=== PATIENT | female | born 1965 | race Caucasian/White ===

== ENCOUNTER 2018-07-06 10:54 | Day surgery (SDC) | payer OTHER ==
[2018-07-06] MEDS ORDERED: LR 1,000 ML IV ONE (11:30)
[2018-07-06] MEDS ORDERED: ceFAZolin 2 GM/DEXTROSE 100 ML IV ONE (12:11)
[2018-07-06] MEDS ORDERED: MIDAZOLAM 2 MG/2 ML VIAL IVP ONE (12:22)
--- NOTE | 2018-07-06 12:23 | PDANEPAE ---
ANE Past Medical History - Cardiovascular History Hx Hypertension: No Hx Arrhythmias: No Hx Chest Pain: No Hx Coronary Artery / Peripheral Vascular Disease: No Hx CHF / Valvular Disease: No Hx Palpitations: No - Pulmonary History Hx COPD: No Hx Asthma/Reactive Airway Disease: No Hx Recent Upper Respiratory Infection: No Hx Oxygen in Use at Home: No Hx Sleep Apnea: No Sleep Apnea Screening Result - Last Documented: Negative - Neurologic History Hx Cerebrovascular Accident: No Hx Seizures: No Hx Dementia: No - Endocrine History Hx Diabetes: No Obesity: no - Renal History Hx Renal Disorders: No - Liver History Hx Hepatic Disorders: No - Neurological & Psychiatric Hx Hx Neurological and Psychiatric Disorders: Yes Neurological / Psychiatric History Comment: ANXIETY & DEPRESSION - Cancer History Hx Cancer: No - Congenital Disorder History Hx Congenital Disorders: No - GI History GERD: no Hx Gastrointestinal Disorders: No - Other Health History Other Health History: NEG - Chronic Pain History Chronic Pain: Yes (L FOOT) - Surgical History Prior Surgeries: L FOOT SURGERY. CARPAL TUNNEL FRAN. MENISCUS L KNEE X2 ANE Review of Systems Review of Systems: - Exercise capacity METS (RN): 4 METS ANE Patient History - Allergies Allergies/Adverse Reactions: No Known Allergies Allergy (Unverified 06/13/18 15:41) - Home Medications Home medications: home medication list seen and reviewed Home Medications: Abilify 06/13/18 [Last Taken 07/06/18] Alprazolam 06/13/18 [Last Taken 07/05/18] Lamotrigine 06/13/18 [Last Taken 07/06/18] Multivitamin 06/13/18 [Last Taken 07/06/18] Sertraline HCl 06/13/18 [Last Taken 07/06/18] Wellbutrin 100mg (*) 06/13/18 [Last Taken 07/06/18] - NPO status NPO Status: no food or drink >8 hours NPO Since - Liquids (Date): 07/06/18 NPO Since - Liquids (Time): 06:30 NPO Since - Solids (Date): 07/05/18 NPO Since - Solids (Time): 20:00 - Anes Hx Anes Hx: no prior problems - Smoking Hx Smoking Status: Never smoked ANE Labs/Vital Signs - Vital Signs Blood Pressure: 119/73 Heart Rate: 74 Respiratory Rate: 18 O2 Sat (%): 98 Height: 170.18 cm Weight: 49.895 kg ANE Physical Exam - Airway Neck exam: FROM Mallampati Score: Class 1 Mouth exam: normal dental/mouth exam - Pulmonary Pulmonary: no respiratory distress, no rales or rhonchi, clear to auscultation - Cardiovascular Cardiovascular: regular rate and rhythym, no murmur, rub, or gallop - ASA Status ASA Status: II ANE Anesthesia Plan Anesthesia Plan: MAC
[2018-07-06] MEDS ORDERED: LIDOCAINE 2% 100 MG/5 ML SYR ONE (12:27)
[2018-07-06] MEDS ORDERED: ROPIVACAINE HCL 150 MG/30 ML INJ ONE (12:27)
[2018-07-06] MEDS ORDERED: BUPIVACAINE 0.5% 30 ML SDV ONE (12:27)
[2018-07-06] MEDS ORDERED: BACITRACIN 50,000 UNITS/10 ML SYR IRR ONE (12:27)
--- NOTE | 2018-07-06 12:36 | PDHPUP ---
History & Physical Update H&P update statement: This history and physical update is based on an assessment of the patient which was completed after admission or registration (within 24 hours), but prior to the surgery/procedure. H&P update: H&P reviewed & patient examined (no changes in health), no change in patient's condition since H&P completed
[2018-07-06] MEDS ORDERED: fentaNYL 100 MCG/2 ML INJ ONE (12:37)
[2018-07-06] MEDS ORDERED: DEXAMETHASONE 4 MG/ML VIAL ONE ×2 (12:37)
[2018-07-06] MEDS ORDERED: PROPOFOL/EMULSION 500 MG/50 ML BOTTLE IV ONE (12:37)
[2018-07-06] MEDS ORDERED: LIDOCAINE 1% 5 ML SDV ONE (12:44)
[2018-07-06] MEDS ORDERED: fentaNYL 100 MCG/2 ML INJ IVP PRN (14:08)
[2018-07-06] MEDS ORDERED: LR 500 ML IV PRN (14:08)
[2018-07-06] MEDS ORDERED: PROMETHAZINE HCL 25 MG/ML INJ IVP PRN (14:08)
[2018-07-06] MEDS ORDERED: HYDROCODONE/APAP 5/325 TAB PO PRN (14:08)
[2018-07-06] MEDS ORDERED: ONDANSETRON 4 MG/2 ML VIAL IVP PRN (14:08)
[2018-07-06] MEDS ORDERED: NALOXONE HCL 0.4 MG/ML INJ IVP PRN (14:08)
[2018-07-06] MEDS ORDERED: ACETAMINOPHEN 500 MG TAB PO PRN (14:08)
--- NOTE | 2018-07-06 14:51 | POSTANESTH ---
Post Anesthetic Evaluation Cardiovascular Status: Normal, Stable, Similar to Pre-Op Cond Respiratory Status: Normal, Stable, Similar to Pre-op Cond. Level of Consciousness/Mental Status: Can Participate in Eval, Mildly Sleepy, Arousable Pain Control: Adequate, Prn Tx Ordered Nausea/Vomiting Control: Adequate, Prn Tx Ordered Complications Possibly Related to Anesthesia: None Noted
--- NOTE | 2018-07-06 14:56 | POSTOPPROG ---
Post Op Note Date of Operation: 07/06/18 Surgeon: Stacey Dia [employer] Director: Shireen Dia Pre-op Diagnosis: hallux rigidus with valgus, non union first MTPJ, left foot Post-op Diagnosis: same Indication: pain, deformity Procedure: arthrodesis first MTPJ with graft &plate fixation left foot, removal screw Findings: partial union first MTPJ Inf/Abcess present in the surg proc area at time of surgery?: No EBL: Minimal (Plate and screw fixation) Complications: none
[2018-07-06] MEDS ORDERED: HYDROCODONE/APAP 5/325 TAB ONE (16:20)
[2018-07-06 16:52] VITALS: BP 110/64
--- NOTE | 2018-07-06 18:16 | GOP ---
[f rep st] OPERATIVE REPORT DATE OF OPERATION: 07/06/2018 SURGEON: Stacey Dia DPM [employer] COUNSELOR: Shireen Dia DPM. ANESTHESIA: IV sedation with local, light general. ANESTHESIOLOGIST: Alon Davies MD. 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 PROCEDURE PERFORMED: Removal of retained internal hardware, a single screw, and revisional arthrodesis of the 1st metatarsophalangeal joint with use of Shell graft and plate and screws for fixation 1st metatarsophalangeal joint, left foot. FINDINGS: DESCRIPTION OF PROCEDURE: Patient presented to the hospital approximately an hour and a half prior to foot surgery after having been n.p.o. past midnight. Patient's preoperative history and physical and all prior studies were reviewed and there were no contraindications to the proposed procedure. The patient was given Ancef 2 g IV one half hour prior to foot surgery. Patient was taken to the OR room and placed on the OR table in a supine position where the appropriate anesthetic agents were administered. This was supplemented with a local block to the left foot utilizing a total of 10 cc of 0.5% Naropin with 10 cc of 1% lidocaine plain. Anesthetic block was given to the posterior tibial nerve as it courses through the tarsal tunnel and in a Loera block fashion to the base of the 1st metatarsal, left foot. The left foot was then prepped and draped in usual aseptic fashion and covered with a sterile stockinette. A sterile pneumatic ankle tourniquet was applied and padded well underneath Webril. Utilizing elevation overlying Esmarch bandage, the left foot was exsanguinated and the tourniquet was inflated to a pressure of 220 mmHg. The foot was then lowered to the orthopedic table. Attention was then directed to the dorsomedial aspect of 1st metatarsophalangeal joint where an approximate 6 cm linear longitudinal incision was made in the same plane as the previous surgical incision from prior surgery. The incision was deepened through the subcutaneous tissues to the level of the capsular and periosteal tissues taking care to preserve the neurovascular structures. Any bleeders were clamped and cauterized as needed. There was significant scarring to the subcutaneous tissues and adhesions. The capsule and periosteal tissues were freed from the dorsal and medial aspects of the 1st metatarsal head and distal shaft, and also off the dorsal and medial aspects of the base of the proximal phalanx and proximal shaft region. The screw head was identified to the medial base of the proximal phalanx and removed without complications. The screw was consistent with a Marcia 2.7 mm screw. First metatarsophalangeal joint was inspected and utilizing a [employer] elevator, there was partial bone bridging to the fusion site involving the dorsal and central aspect of the fusion site and slight bridging laterally. There was some internal gapping. The fusion site was opened utilizing osteotome and mallets. The 1st metatarsal head was then exposed in the base of the proximal phalanx where there was sclerosis. The guidewire for the reamer provided via the Arthrex system was then placed through the central aspect of the head of the 1st metatarsal into the shaft region. An 18 mm reamer was placed over the guidewire and the sclerotic bone was removed to the level of healthy subchondral bone. The guidewire was removed and any remaining hypertrophic bone to the rim of the 1st metatarsal was resected with a rongeur. Attention was then directed to the base of the proximal phalanx of the hallux where a guidewire was placed through the central aspect of the base of the proximal phalanx, again to serve as an axis guide. Placement of the pin was checked with the C-arm. Utilizing the reamer from the Arthrex system, the sclerotic bone to the base of the proximal phalanx was resected to healthy subchondral bone. The surgical site was copiously irrigated with sterile saline bacitracin solution. The fusion site was then prepared on both sides by fenestrating the bone with a drill bed, an awl, and an osteotome and mallet. Shell bone graft was then placed on the head of the 1st metatarsal. The proximal phalanx was then held flush against the 1st metatarsal head in a rectus position. A standard MTP locking plate was placed on the fusion site and had the ideal fit. The guidewire for the headless 3.5 Arthrex screw was then placed in a distal medial to proximal lateral direction crossing the fusion site in the similar region as the previous screw removed. A 26 mm headless Arthrex screw was then placed over the guidewire crossing the fusion site. The fusion site was then checked with a C-arm and noted to be in optimal alignment and flush. The plate was placed on the fusion site with olive pins and first, the 2 distal locking screws were placed to the distal arms of the plate, both 3.0 screws measuring 12 mm in length. The olive pins to the plates were removed and a 3.0 nonlocking screw was placed to the compression hole, which measured 18 mm in length. The remaining holes were drilled for the locking screws. The most proximal locking screw measured 16 mm in length, followed by the screw coursing through the distal aspect head of the 1st metatarsal, which measured 18 mm in length. Another nonlocking screw was placed just distal to the fusion site, which measured 16 mm in length. The surgical site was copiously irrigated with a sterile saline bacitracin solution. The fusion site was checked with the C-arm in all planes and had optimal alignment with adequate fixation. The capsular tissues were reapproximated with 2-0 Vicryl. The tourniquet was released. There was immediate capillary refill to all digits and hemostasis. Subcutaneous tissues reapproximated with 4-0 Monocryl. The skin was reapproximated with 4-0 Prolene. A mildly compressive dry sterile gauze dressing was applied utilizing Xeroform, 4 x 4 gauze, Mayi, Kerlix, and Srinath wrap. Patient tolerated the procedure and anesthesia well, transferred to the recovery room with vital signs stable and vascular status intact to left lower extremity. In the recovery room, patient received postoperative oral and written home care instructions. She is instructed to wear the cast boot at all times when ambulating. Is to off weight bear the forefoot, but can bear some weight on the heel for balance. She is to utilize crutches or a Roll-A-Bout for ambulation assist. She was dispensed a Cryo/Cuff and instructed on its usage. The patient was given prescriptions for OxyContin and Percocet to take postoperatively as prescribed and warned about its interactions with some of her current medications. The procedure went well without complications. Postoperative radiographs were ordered. The patient is scheduled for her first postoperative visit in 2 days, but is to call the office earlier if any questions or problems should arise. /[id number]/MODL MTDD
== END 2018-07-06 17:02 | disposition home or self-care (01) ==
LOC: FSGY 10:54
PROVIDERS: ATTEND Podiatrist
PROC: 0SRN0JZ Replacement of Left Metatarsal-Phalangeal Joint with Synthetic Substitute, Open Approach (ICD-10-PCS; principal; 2018-07-06 12:30)
PROC: 0SPN04Z Removal of Internal Fixation Device from Left Metatarsal-Phalangeal Joint, Open Approach (ICD-10-PCS; principal; 2018-07-06 12:30)
DX: M20.22 Hallux rigidus, left foot (principal); S92.902K Unspecified fracture of left foot, subsequent encounter for fracture with nonunion; F41.8 Other specified anxiety disorders
CPT/HCPCS: C1713; C1762; J0690; J1100; J2001; J2250; J2704; J2795; J3010